=== PATIENT | male | born 1955 | race Two or more races ===

== ENCOUNTER 2021-09-06 21:28 | Inpatient (IN) | payer MEDICARE, MEDICAID ==
[~2021-09-06] VITALS: Ht 170.2 cm; Wt 51.7 kg
[2021-09-07] MEDS ORDERED: LABETALOL HCL VIAL 20 MG/4 ML VIAL IV ONE (00:15)
[2021-09-07 00:36] LABS: CHLORIDE 102 mEq/L (98-107)
[2021-09-07 00:41] LABS: ETHANOL BLOOD < 10 mg/dL
[2021-09-07 00:47] LABS: CREATINE KINASE 294 IU/L (39-308)
[2021-09-07 00:53] LABS: BASOPHILS % 0.1 % (0.0-2.0); EOSINOPHILS % 0.1 % (0.0-5.0); HEMATOCRIT. 30.1 % (42.0-52.0); LYMPHOCYTES % 9.3 % (20.0-50.0); MEAN CORPUSCULAR HEMOGLOBIN 26.9 pg (28.0-32.0); MEAN CORPUSCULAR VOLUME 81.2 fL (80.0-94.0); MEAN PLATELET VOLUME 7.3 fl (7.4-10.4); MONOCYTES % 8.1 % (2.0-8.0); NEUTROPHILS % 82.4 % (40.0-76.0); PLATELET 602 x1000/uL (130-400); RED CELL DISTRIBUTION WIDTH 14.4 % (11.6-14.6)
[2021-09-07] MEDS ORDERED: SODIUM CHLORIDE 0.9% 1,000 ML IV ONE (01:00)
[2021-09-07] MEDS ORDERED: ACETAMINOPHEN 325MG TABLET PO PRN ×2 (02:45)
[2021-09-07] MEDS ORDERED: CLONIDINE 0.1MG TABLET PO PRN (02:45)
[2021-09-07] MEDS ORDERED: DIPHENHYDRAMINE 50MG/ML VIAL IV PRN (02:45)
[2021-09-07] MEDS ORDERED: ONDANSETRON HCL 4MG/2ML INJ IV PRN (02:45)
[2021-09-07 05:42] LABS: CLARITY URINE CLEAR (CLEAR); COLOR URINE DARK YELLOW (YELLOW); KETONES URINE NEGATIVE (NEGATIVE); LEUKOCYTE ESTERASE URINE NEGATIVE (NEGATIVE); NITRITE URINE NEGATIVE (NEGATIVE); OCCULT BLOOD URINE NEGATIVE (NEGATIVE); PROTEIN URINE 1+ (NEGATIVE); SPECIFIC GRAVITY URINE 1.026 (1.005-1.030); UROBILINOGEN URINE 0.2 E.U./dL (0.2-1.0)
[2021-09-07] MEDS: DEXT 5%/0.45% NACL 1000ML 1,000 ML IV SCH ×3 (05:54→21:37)
[2021-09-07 05:58] LABS: *AMPHETAMINES SCREEN URINE NEGATIVE (NEGATIVE); *BARBITURATES SCREEN URINE NEGATIVE (NEGATIVE); *BENZODIAZEPINES SCREEN URINE NEGATIVE (NEGATIVE)
[2021-09-07 05:59] LABS: *COCAINE SCREEN URINE PRESUMTIVE POSITIVE (NEGATIVE); CANNABINOID URINE SCREEN NEGATIVE (NEGATIVE); METHADONE URINE SCREEN NEGATIVE (NEGATIVE); OPIATES URINE SCREEN NEGATIVE (NEGATIVE); PHENCYCLIDINE URINE SCREEN NEGATIVE (NEGATIVE)
[2021-09-07 10:00] VITALS: BP 100/69
[2021-09-07 11:00] VITALS: BP 100/69
[2021-09-07 12:00] VITALS: BP 108/78
[2021-09-07 14:00] VITALS: BP 100/71
[2021-09-07] MEDS ORDERED: INFLUENZA VACCINE 05/PF 0.5 ML SYRINGE IM ONE (15:15)
[2021-09-07] MEDS ORDERED: PNEUMOCOCCAL 23-VAL P-SAC VAC 0.5 ML IM ONE (15:15)
[2021-09-07 16:00] VITALS: BP 100/71
[2021-09-07 20:00] VITALS: BP 104/67
[2021-09-08] VITALS: BP 122/82
[2021-09-08 04:00] VITALS: BP 108/74
[2021-09-08 07:42] LABS: BASOPHILS % 0.2 % (0.0-2.0); EOSINOPHILS % 0.2 % (0.0-5.0); HEMATOCRIT. 33.8 % (42.0-52.0); HEMOGLOBIN. 11.1 g/dL (14.0-18.0); MEAN CORPUSCULAR VOLUME 82.5 fL (80.0-94.0); MEAN PLATELET VOLUME 7.1 fl (7.4-10.4); MONOCYTES % 8.3 % (2.0-8.0); NEUTROPHILS % 79.3 % (40.0-76.0); PLATELET 572 x1000/uL (130-400); RED CELL DISTRIBUTION WIDTH 14.4 % (11.6-14.6)
[2021-09-08 07:45] LABS: CHLORIDE 108 mEq/L (98-107)
[2021-09-08 08:00] VITALS: BP 104/65
[2021-09-08] MEDS: DEXT 5%/0.45% NACL 1000ML 1,000 ML IV SCH ×2 (09:30→17:56)
[2021-09-08 12:00] VITALS: BP 101/69
[2021-09-08 16:00] VITALS: BP 100/69
[2021-09-08 20:00] VITALS: BP 111/67
[2021-09-09] VITALS: BP 122/88
[2021-09-09 04:00] VITALS: BP 109/71
[2021-09-09] MEDS: DEXT 5%/0.45% NACL 1000ML 1,000 ML IV SCH (04:04)
[2021-09-09 08:00] VITALS: BP 119/86
[2021-09-09 12:00] VITALS: BP 125/83
[2021-09-09 16:00] VITALS: BP 110/80
[2021-09-09 20:00] VITALS: BP 114/80
[2021-09-10] VITALS: BP 120/83
[2021-09-10 04:00] VITALS: BP 121/85
[2021-09-10] MEDS: DEXT 5%/0.45% NACL 1000ML 1,000 ML IV SCH ×2 (06:59→11:21)
[2021-09-10 08:00] VITALS: BP 112/74
[2021-09-10 12:00] VITALS: BP 105/78
[2021-09-10 15:14] VITALS: BP 105/78
[2021-09-10 15:58] VITALS: BP 110/75
== END 2021-09-10 18:12 | DRG 682 ==
LOC: ER 21:28 → ENRESERV 09-07 09:08 → 8WST 09-07 10:23
PROVIDERS: ADMIT Internal Medicine; ATTEND Internal Medicine
DX: N17.9 Acute kidney failure, unspecified (principal); E43 Unspecified severe protein-calorie malnutrition; Z68.1 Body mass index [BMI] 19.9 or less, adult; F14.10 Cocaine abuse, uncomplicated; R41.82 Altered mental status, unspecified; F32.A Depression, unspecified; M79.673 Pain in unspecified foot; E86.0 Dehydration; Z59.00 Homelessness unspecified
CPT/HCPCS: 36415; 71045; 73630; 80048; 80053; 80305; 80320; 81003; 82140; 82550; 82962; 83880; 84443; 84484; 85025; 90686; 90732; 93005; 97162; 99285; C1893; J3490; G0480